=== PATIENT | male | born 2000 | race Asian ===

== ENCOUNTER 2024-07-13 08:56 | Emergency (ER) | payer BC ==
[~2024-07-13] VITALS: Ht 165.1 cm; Wt 71.0 kg
[2024-07-13 09:09] VITALS: O2SAT 99
[2024-07-13] MEDS: TETANUS, DIPHTHERIA, PERTUSSIS VAC/PF 0.5ML (>10YR OLD) IM ONE (10:42)
[2024-07-13 11:19] VITALS: BP 118/70; PULSE 90; RESP 18; TEMP 36.66960; O2SAT 99
== END 2024-07-13 11:20 | disposition home or self-care (01) ==
LOC: ER 08:56
DX: S01.81XA Laceration without foreign body of other part of head, initial encounter (principal); W18.30XA Fall on same level, unspecified, initial encounter; Y93.89 Activity, other specified; Y92.89 Other specified places as the place of occurrence of the external cause; Y99.8 Other external cause status
CPT/HCPCS: 12013; 72170; 90471; 90715; 99283